=== PATIENT | female | born 1960 | race Caucasian/White ===

== ENCOUNTER 2018-09-16 08:37 | Emergency (ER) | payer OTHER ==
[~2018-09-16] VITALS: Ht 162.6 cm; Wt 80.8 kg
[~2018-09-16 08:37] MED LIST: ALPRAZOLAM; ALPRAZOLAM 0.0.25 M1 PO; BUPROPION; CELEXA40 MG PO; ESTRACE1 MG INTRADERM; FLONASE 0.05%50 MCG; LEVOTHYROXINE0.05 MG PO; MECLIZINE 25 MG25 M1; SEROQUEL 25 MG25 M1 PO; SYNTHROID; TRANSDERM-SCO1 PATC1; WELLBUTRIN XL300 M1; WELLBUTRIN XL300 M1 PO; ZOFRAN4 MG; ZOLPIDEM NASAL
[2018-09-16] MEDS ORDERED: METFORMIN HCL500 MG PO (08:54)
[2018-09-16] MEDS ORDERED: SEROQUEL 25 MG25 M2 PO (08:55)
[2018-09-16] MEDS ORDERED: TOPAMAX 25 MG T25 M1 PO (08:55)
[2018-09-16] MEDS ORDERED: CEVIMELINE HCL30 MG PO (08:55)
[2018-09-16 09:02] LABS: URINE BILIRUBIN NEGATIVE (Negative); URINE BLOOD NEGATIVE (Negative); URINE CLARITY CLEAR; URINE COLOR YELLOW; URINE GLUCOSE-RANDOM NEGATIVE (Negative); URINE KETONES NEGATIVE (Negative); URINE LEUKOCYTES-REFLEX TRACE (Negative); URINE NITRITE-REFLEX NEGATIVE (Negative); URINE PROTEIN NEGATIVE (Negative); URINE SPECIFIC GRAVITY 1.015 (1.005-1.030); URINE UROBILINOGEN 0.2 E.U./dl (0.2-1.0)
[2018-09-16 09:13] LABS: SQUAMOUS 0-3 Few /LPF (0-3); URINE RBC 0-2 Rare /HPF (0-2); URINE WBC-REFLEX 0-5 Rare /HPF (0-5)
[2018-09-16 09:13] LABS: ABSOLUTE EOSINOPHILS 0.1 thou/uL (0.0-0.7); ABSOLUTE LYMPHOCYTES 2.1 thou/uL (0.8-5.3); ABSOLUTE MONOCYTES 0.6 thou/uL (0.0-1.2); ABSOLUTE NEUTROPHILS 6.7 thou/uL (1.6-8.1); BASOPHILS 0.3 %; EOSINOPHILS 0.6 %; HEMATOCRIT 40.3 % (37.0-47.0); HEMOGLOBIN 13.3 gm/dL (12.0-15.0); LYMPHOCYTES 22.1 %; MCH 29.5 pg (26.0-34.0); MCHC 32.9 g/dL (28.0-37.0); MCV 89.7 fL (80.0-100.0); MONOCYTES 6.2 %; MPV 7.4 fl. (7.2-11.1); NUCLEATED RBCS 0 /100WBC; PLATELET COUNT* 326 thou/uL (150-400); POLYS 70.8 %; RDW-CV 13.9 % (10.5-14.5); WBC 9.5 thou/uL (4.0-11.0)
[2018-09-16 09:14] LABS: BACTERIA-REFLEX 1-9 Few /HPF (None Seen); CRYSTALS None Seen /LPF (None Seen); HYALINE CASTS 0-3 Few /LPF (None Seen); MUCUS 0-3 Light strn/LPF (None Seen)
[2018-09-16 09:28] LABS: ALBUMIN 3.4 g/dL (3.4-5.0); CALCIUM 8.8 mg/dL (8.5-10.1); CREATININE 0.7 mg/dL (0.6-1.3); POTASSIUM 3.8 mmol/L (3.5-5.1); TOTAL BILIRUBIN 0.4 mg/dL (<0.1-1.0); TOTAL PROTEIN 7.6 g/dL (6.4-8.2)
[2018-09-16] MEDS ORDERED: HYDROCODONE-AP1 EAC6 PO (09:43)
[2018-09-16] MEDS ORDERED: ZOFRAN ODT4 MG DISSOLVE (09:43)
[2018-09-16] MEDS ORDERED: KEFLEX500 M1 PO (09:43)
[2018-09-16 10:11] VITALS: BP 137/69
== END 2018-09-16 10:13 | disposition home or self-care (01) ==
LOC: M.ERS 08:37
PROVIDERS: Emergency Medicine Emergency Medical Services
DX: N12 Tubulo-interstitial nephritis, not specified as acute or chronic (principal); R11.2 Nausea with vomiting, unspecified; F41.0 Panic disorder [episodic paroxysmal anxiety]; F32.9 Major depressive disorder, single episode, unspecified; Z90.710 Acquired absence of both cervix and uterus; Z98.890 Other specified postprocedural states